=== PATIENT | female | born 1990 | race African-American/Black ===

== ENCOUNTER → 2016-11-21 17:30 | Emergency (ER) | payer SELFPAY ==
[2016-11-21 17:15] LABS: URINE SOURCE CLEAN CATCH
[2016-11-21 17:22] LABS: URINE APPEARANCE CLEAR; URINE BILIRUBIN NEG (NEG); URINE BLOOD NEG (NEG); URINE COLOR YELLOW; URINE GLUCOSE NEG (NEG); URINE KETONE TRACE (NEG); URINE LEUKOCYTE ESTERASE NEG (NEG); URINE NITRATE NEG (NEG); URINE PH 6.5 (5-8); URINE PROTEIN NEG (NEG); URINE SPECIFIC GRAVITY 1.024 (1.003-1.035)
[~2016-11-21 17:30] MED LIST: ATIVAN PO; ATIVAN0.5 MG DOB; DOXYCYCLINE HY100 M1 PO; FLAGYL PO; LIDOCAINE VISCOU1 ML PO; NO MEDICATIONS; PRILOSEC20 MG PO; VISTARIL PO; VOLTAREN50 MG PO; ZANTAC300 MG PO
[2016-11-21 17:32] LABS: CULTURE INDICATED? NO
== END | disposition left against medical advice (07) ==
LOC: CED 17:30
DX: Z53.21 Procedure and treatment not carried out due to patient leaving prior to being seen by health care provider (principal)
CPT/HCPCS: 81003